=== PATIENT | female | born 1965 | race Hispanic/Latino ===

== ENCOUNTER 2021-05-08 04:16 | Emergency (ER) | payer MEDICAID ==
[~2021-05-08] VITALS: Ht 154.9 cm; Wt 68.0 kg
[2021-05-08 05:40] LABS: BASOPHILS % (AUTO) 1.4 % (0.0-5.0); EOSINOPHILS % (AUTO) 5.4 % (0.0-8.0); HEMATOCRIT 25.5 % (36-48); LYMPHOCYTES % (AUTO) 22.6 % (21.0-51.0); MEAN CORPUSCULAR HEMOGLOBIN 29.7 pg (27.0-33.0); MEAN CORPUSCULAR HGB CONC 33.3 g/dL (32.0-36.0); MEAN CORPUSCULAR VOLUME 89.2 fL (79-99); MONOCYTES % (AUTO) 9.1 % (3.0-13.0); NEUTROPHILS % (AUTO) 61.4 % (40.0-77.0); PLATELET COUNT (AUTO) 261 K/uL (130-400); RED BLOOD CELL COUNT(AUTO) 2.86 MIL/uL (4.00-5.50); RED CELL DISTRIBUTION WIDTH 13.1 % (11.0-15.5); WHITE BLOOD COUNT (AUTO) 8.8 K/uL (4.8-10.8)
[2021-05-08 05:57] LABS: APPEARANCE,URINE Clear (CLEAR); BILIRUBIN,URINE Negative (NEGATIVE); COLOR,URINE Yellow (YELLOW); GLUCOSE, URINE (UA) Negative (NEGATIVE); KETONES,URINE Negative (NEGATIVE); LEUKOCYTE ESTERASE ,URINE Negative (NEGATIVE); NITRATE,URINE Negative (NEGATIVE); OCCULT BLOOD,URINE Negative (NEGATIVE); PH,URINE 5.5 (5.0-8.0); PROTEIN,URINE >=1000 mg/dL (NEGATIVE); UROBILINOGEN,URINE 0.2 mg/dL (0.2-1.0)
[2021-05-08 05:59] LABS: ALBUMIN 3.1 g/dL (3.5-5.0); BILIRUBIN,TOTAL 0.2 mg/dL (0.2-1.0); CREATININE 1.9 mg/dL (0.5-1.5); POTASSIUM 4.2 mmol/L (3.5-5.1); TOTAL PROTEIN, SERUM 7.7 g/dL (6.0-8.3)
[2021-05-08 06:08] LABS: BACTERIA,URINE None Seen /HPF (None Seen); RBC,URINE None Seen /HPF (0-1); SQUAMOUS EPITHELIAL CELL,UR Rare /HPF (0-2); WBC,URINE None Seen /HPF (0-1)
[2021-05-08] MEDS ORDERED: ONDANSETRON 4MG INJ ONE (06:53)
[2021-05-08] MEDS ORDERED: FENTANYL CITRATE PF 50 MCG/1 ML 2ML VIAL ONE (06:55)
[2021-05-08] MEDS ORDERED: ONDANSETRON 4MG INJ IVP ONE (07:00)
[2021-05-08] MEDS ORDERED: FENTANYL CITRATE PF 50 MCG/1 ML 2ML VIAL IVP ONE (07:00)
[2021-05-08 07:40] VITALS: BP 105/53
[2021-05-08] MEDS ORDERED: FAMO40TA75 PO (07:53)
[2021-05-08] MEDS ORDERED: ONDA4TAB4 PO (07:53)
[2021-05-08] MEDS ORDERED: MAG-37 PO (07:53)
== END 2021-05-08 08:15 | disposition home or self-care (01) ==
LOC: EDH 04:16
DX: K29.70 Gastritis, unspecified, without bleeding (principal); E11.9 Type 2 diabetes mellitus without complications; I10 Essential (primary) hypertension; Z79.899 Other long term (current) drug therapy
CPT/HCPCS: 36415; 71045; 76705; 80053; 81001; 82550; 83690; 84484; 85025; 93005; 96374; 96375; 99285; J2405; J3010

== ENCOUNTER 2021-06-26 06:18 | Day surgery (SDC) | payer MEDICAID ==
[2021-06-26] VITALS (7 sets, daily range): BP systolic 87–215; BP diastolic 51–113
[~2021-06-26] VITALS: Ht 154.9 cm; Wt 65.4 kg
[~2021-06-26 06:18] MED LIST: 0.9%NACL 1000ML 1,000 ML IV ONE; FAMO40TA75 PO; MAG-37 PO; ONDA4TAB4 PO
[2021-06-26] MEDS ORDERED: PROPOFOL 10 MG/ML 20ML VIAL IV ONE (09:00)
[2021-06-26] MEDS ORDERED: LIDOCAINE HCL 400MG/20ML VIAL ONE (09:02)
== END 2021-06-26 10:11 | disposition home or self-care (01) ==
LOC: DAH 06:18 → ENDO 06:18
PROVIDERS: ATTEND Internal Medicine Gastroenterology
DX: Z12.11 Encounter for screening for malignant neoplasm of colon (principal); Z20.822 Contact with and (suspected) exposure to COVID-19; K29.50 Unspecified chronic gastritis without bleeding; B96.81 Helicobacter pylori [H. pylori] as the cause of diseases classified elsewhere; D12.2 Benign neoplasm of ascending colon; K51.40 Inflammatory polyps of colon without complications; K63.89 Other specified diseases of intestine; R10.11 Right upper quadrant pain; E11.22 Type 2 diabetes mellitus with diabetic chronic kidney disease; I13.0 Hypertensive heart and chronic kidney disease with heart failure and stage 1 through stage 4 chronic kidney disease, or unspecified chronic kidney disease; N18.9 Chronic kidney disease, unspecified; I50.20 Unspecified systolic (congestive) heart failure; Z98.891 History of uterine scar from previous surgery; Z95.0 Presence of cardiac pacemaker; Z79.82 Long term (current) use of aspirin; Z79.899 Other long term (current) drug therapy
CPT/HCPCS: 43239; 45380; 45385; 82948 ×4; 87635; 88305; 88342; A4215 ×2; A4221; A4222; A4223; A4606; A4620; A4657; A4663; C9803; J3490 ×2; J7030; J2704

== ENCOUNTER → 2021-11-20 | Outpatient (CLI) | payer MEDICAID ==
[~2021-11-20] MED LIST changes: -0.9%NACL 1000ML 1,000 ML IV ONE
== END ==
LOC: RAH 10:03
PROVIDERS: ATTEND Thoracic Surgery (Cardiothoracic Vascular Surgery)
DX: N18.6 End stage renal disease (principal); R60.0 Localized edema; I77.0 Arteriovenous fistula, acquired
CPT/HCPCS: 93931; 93971

== ENCOUNTER → 2022-12-07 | Outpatient (CLI) | payer MEDICARE | END | disposition home or self-care (01) | LOC: SHCH 15:03 | PROVIDERS: ATTEND Internal Medicine Cardiovascular Disease | DX: I50.22 Chronic systolic (congestive) heart failure (principal) | CPT/HCPCS: 93306 ==

== ENCOUNTER 2024-12-21 02:24 | Emergency (ER) | payer OTHER ==
[~2024-12-21] VITALS: Ht 170.2 cm; Wt 70.3 kg
[2024-12-21] MEDS ORDERED: AMIOdarone 150MG VIAL IV ONE (02:25)
[2024-12-21] MEDS ORDERED: INSULIN humuLIN R 100 UNIT/ML 3ML ONE (02:42)
[2024-12-21 02:43] LABS: BASOPHILS # (AUTO) 0.09 K/uL (0.00-0.20); BASOPHILS % (AUTO) 0.7 % (0.0-5.0); EOSINOPHILS # (AUTO) 0.06 K/uL (0.00-0.70); EOSINOPHILS % (AUTO) 0.5 % (0.0-8.0); HEMATOCRIT 35.2 % (36-48); IMMATURE GRANULOCYTE ABSOLUTE 0.54 K/uL (0-1); LYMPHOCYTES # (AUTO) 4.2 K/uL (1.0-4.8); LYMPHOCYTES % (AUTO) 32.8 % (21.0-51.0); MEAN CORPUSCULAR HEMOGLOBIN 33.5 pg (27.0-33.0); MEAN CORPUSCULAR HGB CONC 30.4 g/dL (32.0-36.0); MEAN CORPUSCULAR VOLUME 110.3 fL (79-99); MONOCYTES # (AUTO) 0.7 K/uL (0.1-1.0); MONOCYTES % (AUTO) 5.1 % (3.0-13.0); NEUTROPHILS # (AUTO) 7.2 K/uL (1.8-7.7); NEUTROPHILS % (AUTO) 56.7 % (40.0-77.0); NUCLEATED RED BLOOD CELLS 0.4 % (0.0-0.19); PLATELET COUNT (AUTO) 265 K/uL (130-400); RED BLOOD CELL COUNT(AUTO) 3.19 MIL/uL (4.00-5.50); RED CELL DISTRIBUTION WIDTH 14.3 % (11.0-15.5); WHITE BLOOD COUNT (AUTO) 12.7 K/uL (4.8-10.8)
--- NOTE | 2024-12-21 02:50 | NUR ---
SEE CODE SHEET FOR DOCUMENTATION AND MEDICATION DOCUMENTATION
[2024-12-21 02:58] LABS: MAGNESIUM 2.6 mg/dL (1.80-2.40)
[2024-12-21 03:04] LABS: CREATININE 8.5 mg/dL (0.5-1.0)
--- NOTE | 2024-12-21 03:04 | NUR ---
DR WEI MADE AWARE OF ABNORMAL LAB RESULTS GLUCOSE 702, BUN 78, CREATININE 8.5, POTASSIUM 8, TROPONIN 152
--- NOTE | 2024-12-21 03:13 | ERN ---
General Chief Complaint: CPR/Full Arrest Stated Complaint: CARDIOPULMONARY ARREST Time Seen by MD: 03:02 Source: patient History of Present Illness Initial Comments 59-year-old female with cardiac disease experienced sudden shortness of breath. brand marketing intern were called by the time they arrived the patient was pulseless and apneic. The patient was in a private bedroom it took ENT 3-5 minutes get the patient out into an area where they could work. They initiated CPR, intubated the patient, established an IO in her right leg, gave her two mg of epinephrine, 2 mg of bicarb. By the time the patient arrived to the emergency room she had normal sinus rhythm. Patient was brought into the [facility] and and immediately lost pulses. ACLS protocol initiated. Patient was given immediately to amps of bicarb to male another mg of epinephrine and CPR initiated please see the code procedure for details. Allergies: Coded Allergies: No Known Allergies (Unverified Allergy, Unknown, 05/08/21) Home Meds Active Scripts Ondansetron HCl (Zofran) 4 Mg Tablet, 8 MG PO Q8H PRN for NAUSEA/VOMITING for 5 Days, #20 TAB 0 Refills Prov:ABDON SORTO MD 05/08/21 Mag Hydrox/Aluminum Hyd/Simeth (Maalox Advanced Suspension) 355 Ml Oral.susp, 355 ML PO Q6HPRN PRN for ABDOMINAL PAIN for 5 Days, #2000 ML Prov:ABDON SORTO MD 05/08/21 Famotidine (Pepcid) 40 Mg Tablet, 40 MG PO DAILY for 14 Days, #30 TAB Prov:ABDON SORTO MD 05/08/21 Past Medical History Past Medical History: Diabetes-Type II, Hypertension Results Laboratory and Microbiology Lab and Micro Result Laboratory Tests Test 12/21/24 02:30 White Blood Count 12.7 K/uL (4.8-10.8) H Red Blood Count 3.19 MIL/uL (4.00-5.50) L Hemoglobin 10.7 g/dL (12.0-16.0) L Hematocrit 35.2 % (36-48) L Mean Corpuscular Volume 110.3 fL (79-99) H Mean Corpuscular Hemoglobin 33.5 pg (27.0-33.0) H Mean Corpuscular Hemoglobin Concent 30.4 g/dL (32.0-36.0) L Red Cell Distribution Width 14.3 % (11.0-15.5) Platelet Count 265 K/uL (130-400) Mean Platelet Volume 10.0 fL (7.5-10.5) Immature Granulocyte % (Auto) 4.2 % (0-1) H Neutrophils (%) (Auto) 56.7 % (40.0-77.0) Lymphocytes (%) (Auto) 32.8 % (21.0-51.0) Monocytes (%) (Auto) 5.1 % (3.0-13.0) Eosinophils (%) (Auto) 0.5 % (0.0-8.0) Basophils (%) (Auto) 0.7 % (0.0-5.0) Neutrophils # (Auto) 7.2 K/uL (1.8-7.7) Lymphocytes # (Auto) 4.2 K/uL (1.0-4.8) Monocytes # (Auto) 0.7 K/uL (0.1-1.0) Eosinophils # (Auto) 0.06 K/uL (0.00-0.70) Basophils # (Auto) 0.09 K/uL (0.00-0.20) Absolute Immature Granulocyte (auto 0.54 K/uL (0-1) Nucleated Red Blood Cells 0.4 % (0.0-0.19) H Sodium Level 139 mmol/L (136-145) Potassium Level 8.0 mmol/L (3.5-5.1) *H Chloride Level 98 mmol/L (101-111) L Carbon Dioxide Level 19 mmol/L (21-32) L Blood Urea Nitrogen 78 mg/dL (7-18) *H Creatinine 8.5 mg/dL (0.5-1.0) *H Glomerular Filtration Rate Calc 5 mL/min (>90) Random Glucose 702 mg/dL (70-105) *H Total Calcium 8.4 mg/dL (8.5-10.1) L Magnesium Level 2.60 mg/dL (1.80-2.40) H Troponin I High Sensitivity 152 ng/L (4-50) *H MDM After following the ACLS protocol we never achieved [place]. I discussed the grim prognosis with family members and we agreed to stop resuscitation efforts. ED Course Orders Procedure Category Date Status Time Cbc With Differential LAB 12/21/24 In Process 02:36 Basic Metabolic Panel LAB 12/21/24 Complete 02:36 Magnesium LAB 12/21/24 Complete 02:36 Troponin I High LAB 12/21/24 Complete Sensitivity 02:36 Arterial Blood Gas + RT 12/21/24 Transmitted 02:42 Insulin Regular, PHA 12/21/24 Complete Human 3ml (Humulin R 02:42 Current Medications Medications (Trade) Dose Ordered Sig/Bill Route PRN Reason Start Time Stop Time Status Last Admin Dose Admin Insulin Human Regular (humuLIN R 100 UNIT/ML 3ML) 300 unit STK-MED ONCE .ROUTE 12/21/24 02:42 12/21/24 02:43 DC Critical Care Note Critical Time: 45 minutes DX & DISP Disposition: Departure Impression: Primary Impression: AMI (acute myocardial infarction) Condition: Stable Referrals: PRUDENCIO BANGURA MD (PCP) EMILIANO WEI MD Dec 21, 2024 03:13
--- NOTE | 2024-12-21 03:19 | ERN ---
CODEBLUE/INTUBATION/PROCEDURE DATE: 12/21/24 Patient was brought into the [facility] transferred over to the hospital bed. He noted immediately that the patient had lost her pulses. CPR was initiated. Please see the code sheet for details. In brief the patient was given a mg of epinephrine and two amps of bicarb. Labs were sent. We noted the patient's rhythm had changed to one that remember resembled a broad ventricular fibrillation. She was shocked with 200 joules. It did not convert her to a normal sinus rhythm. We treated her with lidocaine more rounds of epinephrine. We also gave her calcium and magnesium. Two more amps of bicarb. All the while continuing a rhythm checks every 2 minutes and 1 mg of epinephrine every 2 minutes. At this point the patient's blood gas results were back showing a pH of 6.9 base deficit of-18 and a potassium of 8. Patient's rhythm did convert to what a appeared to be a bradycardic ventricular driven rhythm at a rate of 46. Atropine did not help. The ventricular rhythm did not support a pulse. We could not confirm pulse by palpation femoral carotid. Ultrasound also failed to show a pulse. We continued CPR. We shocked the patient an additional time with no conversion to a normal sinus rhythm. During this time we did notice every once in awhile, once every 10th beat or so, patient would have a normal sinus beat. Unfortunately those became fewer and fewer until we were seeing only a ventricular rhythm that could not support a pulse. At this point patient had been without a pulse for approximately 45 minutes. I discussed the situation with the family and the lack of oxygen circulation to the brain for this extended period of time. We agreed to withdraw resuscitative efforts. 45 minutes EMILIANO WEI MD Dec 21, 2024 03:19
--- NOTE | 2024-12-21 03:28 | NUR ---
[facility] WILL CONTACT FAMILY. PER TOS, DO NOT RELEASE BODY UNTIL [facility] HAS CALLED BACK.
--- NOTE | 2024-12-21 03:28 | NUR ---
[facility] CALLED, SPOKE TO [employer]
--- NOTE | 2024-12-21 08:48 | NUR ---
[facility] CALLED AND NOTIFIED OF , INQUEST AND [employer] RECEIVED FAMILY CONSENT. [facility] APPROVED TO RELEASE BODY TO [facility] FOR HARVE[facility]. ALSO INFORMED MOLLY THAT [facility] WILL TAKE PT. TO [facility] FOR HARVEST THAN BRING BACK TO [facility].
--- NOTE | 2024-12-21 09:10 | NUR ---
NOTIFIED [facility], [place], OF [facility] ARRANGEMENTS TO TAKE BODY TO [place] AND THEN RETURN TO [facility]. VERBALIZED UNDERSTANDING AND AGREED WITH PLAN
== END 2024-12-21 02:47 ==
LOC: EDH 02:24
DX: I46.9 Cardiac arrest, cause unspecified (principal); E11.9 Type 2 diabetes mellitus without complications; I10 Essential (primary) hypertension; Z79.899 Other long term (current) drug therapy
CPT/HCPCS: 99291; 92950; 83735; 84484; 80048; 85025; 36415; J1815; J2310; J3490 ×3; J7070; J2003; J0171; J3475; J0461; J1265; J0282